=== PATIENT | male | born 1985 | race American Indian/Alaskan Native ===

== ENCOUNTER 2017-04-14 06:19 | Emergency (ER) | payer SELFPAY ==
[2017-04-14 07:27] VITALS: BP 138/95
[2017-04-14] MEDS ORDERED: MOTRIN PO ONE (08:42)
[2017-04-14] MEDS ORDERED: TYLENOL PO ONE (08:42)
--- NOTE | 2017-04-14 08:42 | Emergency Department Report ---
- General Chief Complaint: Upper Respiratory Infection Stated Complaint: SEVERE COUGHING Time Seen by Provider: 04/14/17 08:38 Source: patient, RN notes reviewed Mode of arrival: Ambulatory Limitations: No Limitations - History of Present Illness Initial Comments: This is a 32-year-old gentleman, the patient is previously unknown tetanus, he does not have a local primary care doctor, and denies chronic medical conditions. Presents to the ER with a complaint of one-week of cough, body aches, myalgias. Symptoms are intermittent, do not have exacerbating or relieving factors. No sick contacts. MD Complaint: cough, rhinorrhea, nasal congestion -: Gradual, days(s) Severity: moderate Quality: aching Consistency: constant Improves With: nothing Worsens With: nothing Associated Symptoms: chills, myalgias, headache, rhinorrhea, nasal congestion, sore throat, cough. denies: fever, stiff neck, vomiting, diarrhea, dysuria, rash, confusion, right sweats, weight loss, epistaxis, hoarseness, ear pain - Related Data Previous Rx's Medication Instructions Recorded Last Taken Type Acetaminophen [Tylenol Arthritis] 650 mg PO Q6HR PRN #30 tablet.er 04/14/17 Unknown Rx Albuterol Sulfate [Proair 90 mcg IH Q4HR PRN #2 [email or web address] 04/14/17 Unknown Rx Respiclick] Benzonatate [Tessalon Perles] 100 mg PO Q8HR PRN #30 capsule 04/14/17 Unknown Rx Fluticasone [Flonase] 1 spray NS QDAY #1 bottle 04/14/17 Unknown Rx Ibuprofen [Motrin] 600 mg PO Q8H PRN #30 tablet 04/14/17 Unknown Rx Allergies Allergy/AdvReac Type Severity Reaction Status Date / Time No Known Allergies Allergy Unverified 04/14/17 07:23 ED Review of Systems ROS: Stated complaint: SEVERE COUGHING Other details as noted in HPI ED Past Medical Hx - Past Medical History Previous Medical History?: No - Surgical History Past Surgical History?: No - Social History Smoking Status: Former Smoker Substance Use Type: Non Opiate Pain, Other - Medications Home Medications: Home Medications Medication Instructions Recorded Confirmed Last Taken Type Acetaminophen [Tylenol Arthritis] 650 mg PO Q6HR PRN #30 tablet.er 04/14/17 Unknown Rx Albuterol Sulfate [Proair 90 mcg IH Q4HR PRN #2 aer.[email or web address] 04/14/17 Unknown Rx Respiclick] Benzonatate [Tessalon Perles] 100 mg PO Q8HR PRN #30 capsule 04/14/17 Unknown Rx Fluticasone [Flonase] 1 spray NS QDAY #1 bottle 04/14/17 Unknown Rx Ibuprofen [Motrin] 600 mg PO Q8H PRN #30 tablet 04/14/17 Unknown Rx ED Physical Exam - General Limitations: No Limitations General appearance: alert, in no apparent distress - Head Head exam: Present: atraumatic, normocephalic - Eye Eye exam: Present: normal appearance, PERRL, EOMI. Absent: nystagmus - ENT ENT exam: Present: normal exam, normal orophraynx, mucous membranes moist, TM's normal bilaterally, normal external ear exam - Neck Neck exam: Present: normal inspection, full ROM - Respiratory Respiratory exam: Present: normal lung sounds bilaterally. Absent: respiratory distress, chest wall tenderness - Cardiovascular Cardiovascular Exam: Present: regular rate, normal rhythm, normal heart sounds. Absent: systolic murmur, diastolic murmur, rubs, gallop - GI/Abdominal GI/Abdominal exam: Present: soft, normal bowel sounds. Absent: distended, tenderness, guarding, rebound, rigid, pulsatile mass - Rectal Rectal exam: Present: deferred - Extremities Exam Extremities exam: Present: normal inspection, full ROM, normal capillary refill. Absent: tenderness, pedal edema, joint swelling - Back Exam Back exam: Present: normal inspection, full ROM. Absent: tenderness, CVA tenderness (R), paraspinal tenderness, vertebral tenderness - Neurological Exam Neurological exam: Present: alert, oriented X3, CN II-XII intact, normal gait, other (Extraocular movements intact. Tongue midline. No facial droop. Facial sensation intact to light touch in the V1, V2, V3 distribution bilaterally. 5 and 5 strength in 4 extremities.. Sensation is intact to light touch in 4 extremities.). Absent: motor sensory deficit - Psychiatric Psychiatric exam: Present: normal affect, normal mood - Skin Skin exam: Present: warm, dry, intact, normal color. Absent: rash ED Course Vital Signs 04/14/17 04/14/17 04/14/17 07:23 09:13 09:14 Temperature 98.2 F Pulse Rate 68 Respiratory 20 20 20 Rate Blood Pressure 138/95 O2 Sat by Pulse 100 Oximetry ED Medical Decision Making - Lab Data Vital Signs 04/14/17 04/14/17 04/14/17 07:23 09:13 09:14 Temperature 98.2 F Pulse Rate 68 Respiratory 20 20 20 Rate Blood Pressure 138/95 O2 Sat by Pulse 100 Oximetry - Radiology Data Radiology results: image reviewed interpreted by me: X-ray of the chest, interpreted by me, no acute disease - Medical Decision Making Differential diagnosis, including but not limited to: Bronchitis, pneumonia, influenza, viral syndrome, influenza-like illness Assessment and plan: 32-year-old male with 1 week of cough, myalgias, clinical influenza-like illness. X-ray of the chest unremarkable, physical exam unremarkable, saturating well, no focal pulmonary exam findings. Most likely viral syndrome. Influenza screen negative. Patient does not have significant cardiovascular or pulmonary comorbidities. Symptoms present for greater than 72 hours, therefore the patient will not benefit from Tamiflu therapy. He will be discharged with appropriate symptomatic therapy. Return precautions reviewed. Critical care attestation.: If time is entered above; I have spent that time in minutes in the direct care of this critically ill patient, excluding procedure time. ED Disposition Clinical Impression: Bronchitis Disposition: [id number] TO HOME OR SELFCARE Is pt being admited?: No Does the pt Need Aspirin: No Condition: Stable Instructions: Acute Bronchitis (ED) Additional Instructions: Take the medications as needed/directed. Wash hands before and after handling food, before and after coughing. Symptoms most likely coming from bronchitis. Symptoms typically last 4-6 weeks. Follow up with a primary care doctor within the next 10-14 days. Return to the ER right away with intractable nausea or vomiting, confusion, worsening pain, inability to tolerate liquid feeds, chest pain, shortness of breath, new different or worsening symptoms not present initially. Referrals: PRIMARY CAREMD [Primary Care Provider] - 3-5 Days GABRIELA CASANOVA MD [Staff Physician] - 3-5 Days [facility] [Provider Group] - 3-5 Days
--- NOTE | 2017-04-14 09:32 | XRay Report ---
ROUTINE CHEST, TWO VIEWS: HISTORY: Cough. The trachea, heart, mediastinal contour, lung hendricks and bony thorax are unremarkable. IMPRESSION: Unremarkable chest x-ray.
== END 2017-04-14 09:45 | disposition home or self-care (01) ==
LOC: ED 06:19
DX: J40 Bronchitis, not specified as acute or chronic (principal); Z87.891 Personal history of nicotine dependence
CPT/HCPCS: 71046; 87400; 99283